=== PATIENT | male | born 1995 | race Caucasian/White ===

== ENCOUNTER 2018-02-11 11:48 | Emergency (ER) | payer OTHER ==
[~2018-02-11] VITALS: Ht 180.3 cm; Wt 59.9 kg
[2018-02-11 14:50] VITALS: BP 105/65
== END 2018-02-11 14:51 | disposition home or self-care (01) ==
LOC: EME 11:48
DX: N48.89 Other specified disorders of penis (principal); Z87.891 Personal history of nicotine dependence
CPT/HCPCS: 99281; 99283